=== PATIENT | female | born 1965 | race Caucasian/White ===

== ENCOUNTER 2019-01-15 21:35 | Emergency (ER) | payer BC, OTHER ==
[2019-01-15 21:52] VITALS: BP 170/99; PULSE 69
--- NOTE | 2019-01-15 22:16 | EDM.PDOC ---
ED HPI GENERAL MEDICAL PROBLEM - General Chief Complaint: Laceration Stated Complaint: laceration to chin Time Seen by Provider: 01/15/19 22:10 Source of Information: Reports: Patient History Limitations: Reports: No Limitations - History of Present Illness INITIAL COMMENTS - FREE TEXT/NARRATIVE: Patient is a 53-year-old female presents to the ED complaining of a small abrasion to the underside of her chin. Patient was working at [employer] and tripped falling hitting her chin. There was no loss consciousness. She denies any loose teeth, jaw pain, bite wounds to tongue, neck pain, back pain, extremity pain, chest pain, shortness of breath, abdominal pain, and/or any additional complaints. She is on no blood thinners. Immunizations are up-to- date. Cheek Pain Score (Numeric/FACES): 5 - Related Data Allergies Allergy/AdvReac Type Severity Reaction Status Date / Time Sulfa (Sulfonamide Allergy Hives Verified 01/15/19 21:51 Antibiotics) Home Meds: Home Meds . [No Known Home Meds] 01/15/19 [History] Past Medical History Cardiovascular History: Reports: Hypertension Other RESEARCH SUBJECT History: Pt is menopausal Other Musculoskeletal History: bone spur right shoulder and tendonitis right elbow Other Neuro History: Traumatic brain injury at 22 years of age Oncologic (Cancer) History: Reports: None - Infectious Disease History Infectious Disease History: Reports: Chicken Pox - Past Surgical History HEENT Surgical History: Reports: Adenoidectomy Female Surgical History: Reports: Tubal Ligation Social & Family History - Family History Family Medical History: Noncontributory - Tobacco Use Smoking Status *Q: Current Some Day Smoker Years of Tobacco use: 20 Packs/Tins Daily: 0.2 - Caffeine Use Caffeine Use: Reports: Coffee, Soda - Recreational Drug Use Recreational Drug Use: No ED ROS GENERAL - Review of Systems Review Of Systems: ROS reveals no pertinent complaints other than HPI. ED EXAM, SKIN/RASH Exam: See Below Exam Limited By: No Limitations General Appearance: Alert, WD/WN, No Apparent Distress Eye Exam: Bilateral Eye: Normal Inspection, PERRL Ears: Hearing Grossly Normal Nose: Normal Inspection, Normal Mucosa, No Blood. No: Nasal Tenderness Throat/Mouth: Normal Inspection, Normal Teeth, Normal Voice, No Airway Compromise, Other (No pain with palpation of the jaw. No trismus.) Head: Atraumatic, Normocephalic. No: Facial Swelling, Facial Tenderness Neck: Normal Inspection, Supple, Non-Tender, Full Range of Motion. No: Tender Lateral, Tender Midline Respiratory/Chest: No Respiratory Distress, Lungs Clear, Normal Breath Sounds, No Accessory Muscle Use, Chest Non-Tender Cardiovascular: Normal Peripheral Pulses, Regular Rate, Rhythm, No Murmur Peripheral Pulses: 2+: Radial (L), Radial (R) GI/Abdominal: Normal Bowel Sounds, Soft, Non-Tender, No Organomegaly, No Distention Back Exam: Normal Inspection, Full Range of Motion. No: Paraspinal Tenderness, Vertebral Tenderness Extremities: Normal Inspection, Normal Range of Motion, Non-Tender Neurological: Alert, Oriented, CN II-XII Intact, Normal Cognition, Normal Gait, No Motor/Sensory Deficits Psychiatric: Normal Affect, Normal Mood Skin: Warm, Dry, Normal Color, Other (Superficial abrasion to the underside of the chin with bleeding controlled measuring 1.5 cm.) Course - Vital Signs Last Recorded V/S: Last Vital Signs Temp 98.0 F 01/15/19 21:47 Pulse 69 01/15/19 21:47 Resp 19 01/15/19 21:47 BP 170/99 H 01/15/19 21:47 Pulse Ox 98 01/15/19 21:47 - Re-Assessments/Exams Free Text/Narrative Re-Assessment/Exam: Patient suffered superficial abrasion to the underside of the chin. No closure required. Immunizations are up-to-date. Dressing applied per nursing staff. No further concerns on examination. She is on no blood thinners. Return precautions discussed with the patient. She had no further questions or concerns and agreed with plan. Discharge instructions as documented. Departure - Departure Time of Disposition: 22:28 Disposition: Home, Self-Care 01 Condition: Good Clinical Impression: Abrasion - Discharge Information Referrals: Margo Weir MANAGER TRANSPLANT [Primary Care Provider] - Forms: ED Department Discharge, ED Return to Work/School Form Additional Instructions: Cleanse site twice daily with soap and water, pat dry, keep area clean and dry. Monitor for any signs of infection. If so return back to ED for further evaluation. Wound should close on its own accord in approximately 7 days. Please return back to the ED if you develop any new or worsening symptoms.
== END 2019-01-15 22:35 | disposition home or self-care (01) ==
LOC: JD.ED 21:35
DX: S00.81XA Abrasion of other part of head, initial encounter (principal); I10 Essential (primary) hypertension; F17.210 Nicotine dependence, cigarettes, uncomplicated; Z88.2 Allergy status to sulfonamides; W22.8XXA Striking against or struck by other objects, initial encounter
CPT/HCPCS: 99282

== ENCOUNTER 2019-05-14 05:28 | Emergency (ER) | payer SELFPAY ==
[2019-05-14 05:37] VITALS: BP 176/103; PULSE 70
[2019-05-14] MEDS ORDERED: Ondansetron 4 MG/2 ML SDV IVPUSH ONE (07:01)
[2019-05-14] MEDS ORDERED: Sodium Chloride 0.9% 10 ML Syringe FLUSH PRN (07:01)
[2019-05-14] MEDS ORDERED: HYDROmorphone 0.5 MG/0.5 ML Syringe IVPUSH ONE (07:02)
[2019-05-14] MEDS ORDERED: Ketorolac 30 MG/ML SDV IVPUSH ONE (07:02)
[2019-05-14] MEDS ORDERED: Sodium Chloride 0.9% 1,000 ML IV SCH (07:15)
--- NOTE | 2019-05-14 08:12 | CT ---
CT abdomen and pelvis Comparison: No comparison Technique: Multiple axial sections were obtained from above the dome of the diaphragm inferiorly through the pubic symphysis. Intravenous and oral contrast not utilized. Study was performed as a ureteral stone protocol. Findings: Multiple small nonobstructing calculi are seen within both kidneys. Ureters show no dilatation. No abnormal calcifications are appreciated along the course of the ureters. Visualized lung bases show minimal atelectasis. Liver has an unremarkable noncontrast CT appearance. Spleen appears within normal limits. 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 Pancreas shows no discrete abnormality. Gallbladder contains no calcified gallstones. Aorta shows no aneurysm with minimal atherosclerotic calcification. No retroperitoneal adenopathy or mesenteric abnormalities are seen. No pelvic mass or adenopathy is seen. Appendix is seen which is normal in size. No free fluid or inflammatory change is seen within the abdomen or pelvis. Uterus is slightly generous in size most likely representing fibroid change. There are calcifications being seen within the uterus also likely due to fibroid change. There is low density finding within the obturator externus muscle on the right side. Findings presumably due to previous injury. Degenerative change is scattered within the spine with scoliosis. Spondylolisthesis is noted at L4-L5 measuring 7 mm due to degenerative apophyseal change. Impression: 1. Multiple small nonobstructing calculi. 2. No ureteral dilatation or ureteral stone is seen. 3. Other findings believed to be incidental as noted above. Nothing acute is appreciated. Diagnostic code #2 This report was dictated in [place] Standard Time
--- NOTE | 2019-05-14 08:42 | EDM.PDOC ---
ED HPI GENERAL MEDICAL PROBLEM - General Chief Complaint: Chest Pain Stated Complaint: [facility] Time Seen by Provider: 05/14/19 06:54 Source of Information: Reports: Patient History Limitations: Reports: No Limitations - History of Present Illness INITIAL COMMENTS - FREE TEXT/NARRATIVE: The patient presents with left lower chest and upper abdominal pain with left flank pain. This started this morning when she was getting ready for work. She did left something heavy yesterday. She has some nausea with it. She denies fever, chills, or cough. She has no dysuria or hematuria. She has no history of kidney stones. She says it hurts worse when she moves. She has no shortness of breath with it. Onset: Gradual Duration: Hour(s): Location: Reports: Chest, Abdomen, Back Quality: Reports: Sharp Severity: Moderate Improves with: Reports: Immobilization Worsens with: Reports: Movement Context: Denies: Trauma Associated Symptoms: Reports: Chest Pain. Denies: Cough, Fever/Chills, Headaches, Nausea/Vomiting, Shortness of Breath Left Mid-Anterior Chest Pain Score (Numeric/FACES): 7 - Related Data Allergies Allergy/AdvReac Type Severity Reaction Status Date / Time Sulfa (Sulfonamide Allergy Hives Verified 05/14/19 05:37 Antibiotics) Home Meds: Home Meds . [No Known Home Meds] 01/15/19 [History] Past Medical History Cardiovascular History: Reports: Hypertension Other POT PULLER History: Pt is menopausal Other Musculoskeletal History: bone spur right shoulder and tendonitis right elbow Other Neuro History: Traumatic brain injury at 22 years of age Oncologic (Cancer) History: Reports: None - Infectious Disease History Infectious Disease History: Reports: Chicken Pox - Past Surgical History HEENT Surgical History: Reports: Adenoidectomy Female Surgical History: Reports: Tubal Ligation Social & Family History - Family History Family Medical History: Noncontributory - Tobacco Use Smoking Status *Q: Light Tobacco Smoker Years of Tobacco use: 30 Packs/Tins Daily: 0.2 - Caffeine Use Caffeine Use: Reports: Coffee, Soda - Recreational Drug Use Recreational Drug Use: No ED ROS GENERAL - Review of Systems Review Of Systems: See Below Constitutional: Reports: No Symptoms HEENT: Reports: No Symptoms Respiratory: Reports: No Symptoms Cardiovascular: Reports: Chest Pain Endocrine: Reports: No Symptoms GI/Abdominal: Reports: Abdominal Pain, Nausea. Denies: Diarrhea, Vomiting : Reports: Flank Pain (left) Musculoskeletal: Reports: Back Pain (left side) Skin: Reports: No Symptoms Neurological: Reports: No Symptoms ED EXAM, GENERAL - Physical Exam Exam: See Below Exam Limited By: No Limitations General Appearance: Alert, No Apparent Distress Ears: Normal External Exam Nose: Normal Inspection Head: Atraumatic, Normocephalic Neck: Normal Inspection Respiratory/Chest: No Respiratory Distress, Lungs Clear, Normal Breath Sounds Cardiovascular: Regular Rate, Rhythm, No Edema, No Murmur, Other (Moderate pain upon palpation to the left lower lateral ribs and into the upper abdomen) GI/Abdominal: Soft, No Organomegaly, No Mass, Other (Pain upon palpation to the left upper abdomen to the lower lateral fibs) Back Exam: CVA Tenderness (L) Extremities: Normal Inspection Neurological: Alert, Oriented, No Motor/Sensory Deficits Course - Vital Signs Last Recorded V/S: Last Vital Signs Temp 98.2 F 05/14/19 05:31 Pulse 70 05/14/19 05:31 Resp 16 05/14/19 05:31 BP 176/103 H 05/14/19 05:31 Pulse Ox 99 05/14/19 05:31 - Orders/Labs/Meds Orders: Active Orders 24 hr Category Date Time Status Peripheral IV Care [RC] . DIRECTED Care 05/14/19 07:02 Active Sodium Chloride 0.9% [Normal Saline] 1,000 ml Med 05/14/19 07:15 Active IV ASDIRECTED Sodium Chloride 0.9% [Saline Flush] Med 05/14/19 07:01 Active 10 ml FLUSH ASDIRECTED PRN ED Antiemetic Medication Reflex [OM.PC] Stat Oth 05/14/19 07:01 Ordered Peripheral IV Insertion Adult [OM.PC] Stat Oth 05/14/19 07:01 Ordered Medication Orders Sodium Chloride (Normal Saline) 1,000 mls @ 125 mls/hr IV ASDIRECTED MESFIN Last Admin: 05/14/19 07:17 Dose: 125 mls/hr Sodium Chloride (Saline Flush) 10 ml FLUSH ASDIRECTED PRN PRN Reason: Keep Vein Open Last Admin: 05/14/19 07:19 Dose: 10 ml Labs: Laboratory Tests 05/14/19 05/14/19 Range/Units 07:10 07:10 WBC 10.53 H (3.98-10.04) K/mm3 RBC 4.68 (3.98-5.22) M/mm3 Hgb 13.6 (11.2-15.7) gm/dl Hct 41.2 (34.1-44.9) % MCV 88.0 (79.4-94.8) fl MCH 29.1 (25.6-32.2) pg MCHC 33.0 (32.2-35.5) g/dl RDW Std Deviation 43.3 (36.4-46.3) fL Plt Count 288 (182-369) K/mm3 MPV 9.8 (9.4-12.3) fl Neut % (Auto) 80.0 H (34.0-71.1) % Lymph % (Auto) 12.3 L (19.3-51.7) % [place] % (Auto) 6.3 (4.7-12.5) % Eos % (Auto) 0.9 (0.7-5.8) Baso % (Auto) 0.3 (0.1-1.2) % Neut # (Auto) 8.42 H (1.56-6.13) K/mm3 Lymph # (Auto) 1.30 (1.18-3.74) K/mm3 [place] # (Auto) 0.66 H (0.24-0.36) K/mm3 Eos # (Auto) 0.10 (0.04-0.36) K/mm3 Baso # (Auto) 0.03 (0.01-0.08) K/mm3 Manual Slide Review Normal smear Sodium 140 (136-145) mEq/L Potassium 3.3 L (3.5-5.1) mEq/L Chloride 107 (98-107) mEq/L Carbon Dioxide 23 (21-32) mEq/L Anion Gap 13.3 (5-15) BUN 23 H (7-18) mg/dL Creatinine 0.7 (0.55-1.02) mg/dL Est Cr Clr Drug Dosing 73.51 mL/min Estimated GFR (MDRD) > 60 (>60) mL/min BUN/Creatinine Ratio 32.9 H (14-18) Glucose 122 H (74-106) mg/dL Calcium 8.8 (8.5-10.1) mg/dL Total Bilirubin 0.4 (0.2-1.0) mg/dL AST 20 (15-37) U/L ALT 18 (14-59) U/L Alkaline Phosphatase 79 (46-116) U/L Total Protein 7.1 (6.4-8.2) g/dl Albumin 3.8 (3.4-5.0) g/dl Globulin 3.3 gm/dL Albumin/Globulin Ratio 1.2 (1-2) Lipase 102 (73-393) U/L Meds: Medications Generic Name Dose Route Start Last Admin Trade Name Freq PRN Reason Stop Dose Admin Sodium Chloride 1,000 mls @ 125 mls/hr 05/14/19 07:15 05/14/19 07:17 Normal Saline IV 125 mls/hr ASDIRECTED MESFIN Administration Sodium Chloride 10 ml 05/14/19 07:01 05/14/19 07:19 Saline Flush FLUSH 10 ml ASDIRECTED PRN Administration Keep Vein Open Discontinued Medications Generic Name Dose Route Start Last Admin Trade Name Taiwoq PRN Reason Stop Dose Admin Hydromorphone HCl 0.5 mg 05/14/19 07:02 05/14/19 07:19 Dilaudid IVPUSH 05/14/19 07:03 0.5 mg ONETIME ONE Administration Ketorolac Tromethamine 30 mg 05/14/19 07:02 05/14/19 07:18 Toradol IVPUSH 05/14/19 07:03 30 mg ONETIME ONE Administration Ondansetron HCl 4 mg 05/14/19 07:01 05/14/19 07:17 Zofran IVPUSH 05/14/19 07:02 4 mg ONETIME ONE Administration - Re-Assessments/Exams Free Text/Narrative Re-Assessment/Exam: 05/14/19 08:40 This appears to be more abdominal pain with left flank pain. I have ordered an IV NS at 125ml/hr, zofran 4mg IV, dilaudid 0.5mg IV, labs, UA and CT of her abdomen and pelvis without IV and oral contrast. 05/14/19 08:42 Her WBC was slightly elevated at 10.53. Her K was a little low at 3.3. Her glucose is elevated slightly at 122. Her lipase is normal. Her CT shows multiple small nonobstructing calculi. No ureteral dilatation or ureteral stone is seen. Other findings believed to be incidental. Nothing acute is appreciated. Departure - Departure Time of Disposition: 08:55 Disposition: Home, Self-Care 01 Condition: Good Clinical Impression: Left flank pain Abdominal muscle strain Qualifiers: Encounter type: initial encounter Qualified Code(s): S39.011A - Strain of muscle, fascia and tendon of abdomen, initial encounter Referrals: Margo Weir, LAW REPORTER [Primary Care Provider] - 1 Week Forms: ED Department Discharge, ED Return to Work/School Form Additional Instructions: Take aleve every 12 hours as needed for pain. Rest today. Please return if you are worse. Sepsis Event Note - Evaluation Sepsis Screening Result: No Definite Risk - Focused Exam Vital Signs: Vital Signs Temp Pulse Resp BP Pulse Ox 05/14/19 05:31 98.2 F 70 16 176/103 H 99 Date Exam was Performed: 05/14/19 Time Exam was Performed: 08:51 - My Orders Last 24 Hours: My Active Orders 05/14/19 07:01 Sodium Chloride 0.9% [Saline Flush] 10 ml FLUSH ASDIRECTED PRN ED Antiemetic Medication Reflex [OM.PC] Stat Peripheral IV Insertion Adult [OM.PC] Stat 05/14/19 07:02 Peripheral IV Care [RC] . DIRECTED 05/14/19 07:15 Sodium Chloride 0.9% [Normal Saline] 1,000 ml IV ASDIRECTED - Assessment/Plan Last 24 Hours: My Active Orders 05/14/19 07:01 Sodium Chloride 0.9% [Saline Flush] 10 ml FLUSH ASDIRECTED PRN ED Antiemetic Medication Reflex [OM.PC] Stat Peripheral IV Insertion Adult [OM.PC] Stat 05/14/19 07:02 Peripheral IV Care [RC] . DIRECTED 05/14/19 07:15 Sodium Chloride 0.9% [Normal Saline] 1,000 ml IV ASDIRECTED
== END 2019-05-14 09:10 | disposition home or self-care (01) ==
LOC: JD.ED 05:28
DX: S39.011A Strain of muscle, fascia and tendon of abdomen, initial encounter (principal); N20.0 Calculus of kidney; Z88.2 Allergy status to sulfonamides; F17.210 Nicotine dependence, cigarettes, uncomplicated; X58.XXXA Exposure to other specified factors, initial encounter
CPT/HCPCS: 36415; 74176; 80053; 83690; 85025; 96361; 96374; 96375; 99284; J1170; J1885; J2405; J7030